=== PATIENT | female | born 1955 | race Caucasian/White ===

== ENCOUNTER 2022-01-03 15:14 | Emergency (ER) | payer MEDICARE ==
[~2022-01-03] VITALS: Ht 160 cm; Wt 96.2 kg
[~2022-01-03 15:14] MED LIST: ASHW300C PO; ASPI-1026 PO; ATOR40TA71 PO; BUSP10TA3 PO; CA C1TAB95 PO; FERR-72 PO; FLUO20CA36 PO; INSLAN SQ; LEVO500T90 PO; LISI5TAB21 PO; METF-910 PO; METR-172 PO; MULT-1367 PO; NORT10CA2 PO
[2022-01-03] MEDS ORDERED: ACET1TAB25 PO (16:36)
[2022-01-03 16:52] VITALS: BP 128/73
[2022-01-03] MEDS ORDERED: ACETAMINOPHEN WITH CODEINE 1 TAB TAB PO ONE (17:00)
== END 2022-01-03 16:56 | disposition home or self-care (01) ==
LOC: EDH 15:14
DX: I82.812 Embolism and thrombosis of superficial veins of left lower extremity (principal); F32.A Depression, unspecified; E11.9 Type 2 diabetes mellitus without complications; E78.00 Pure hypercholesterolemia, unspecified; F43.10 Post-traumatic stress disorder, unspecified; Z79.4 Long term (current) use of insulin; Z88.2 Allergy status to sulfonamides; Z79.82 Long term (current) use of aspirin; Z79.899 Other long term (current) drug therapy; Z79.84 Long term (current) use of oral hypoglycemic drugs; Z98.890 Other specified postprocedural states
CPT/HCPCS: 93970